=== PATIENT | female | born 1970 | race Caucasian/White ===

== ENCOUNTER 2019-08-26 11:08 | Day surgery (SDC) ==
[2019-08-21 15:24] LABS: HEMATOCRIT 41.6 % (37.0-47.0); HEMOGLOBIN 13.9 g/dL (12.0-16.0); MCH 28.8 PG (27-31); MCHC 33.4 g/dL (33-37); MCV 86.1 FL (81-99); MPV 10.5 FL (7.4-10.4); RBC 4.83 XMIL (4.2-5.4); RDW 13.7 % (11.5-14.5); WBC 5.97 X1000 (4.8-10.8)
[2019-08-21 15:46] LABS: CALCIUM 9.9 mg/dL (8.8-10.2); CREATININE 1.4 mg/dL (0.5-0.9); POTASSIUM 4.5 mmol/L (3.5-5.1)
[~2019-08-26 11:08] MED LIST: DIPRIVAN 1% ONE; FENTANYL ONE; QUELICIN (DOSE) ONE; ROBINUL ONE; VERSED ONE; XYLOCAINE-MPF 2% ONE
[2019-08-26] MEDS ORDERED: PEPCID ONE (11:34)
[2019-08-26] MEDS ORDERED: REGLAN ONE (11:34)
[2019-08-26] MEDS ORDERED: KEFZOL 1 GM/D5W 1 GM/50 ML IVPB ONE ×2 (11:34→11:35)
[2019-08-26] MEDS ORDERED: LR 1,000 ML ONE ×2 (11:34→16:24)
[2019-08-26] MEDS ORDERED: ZOFRAN ONE (12:50)
[2019-08-26] MEDS ORDERED: DECADRON ONE (12:50)
--- NOTE | 2019-08-26 16:59 | Diag Imaging Result Doc PS360 ---
FLUROSCOPY CYSTO - 08/26/2019 INDICATION: STENT PLACEMENT LT SIDE TECHNIQUE: The exam was performed by the patient's urologist. Two images were submitted. COMPARISON: None FINDINGS: There is a left percutaneous nephrostomy tube. There is a nephroureteral stent in presumably good position. IMPRESSION: No complication. Electronically signed by Lee Santos 08/26/2019 4:57 PM
--- NOTE | 2019-08-26 17:00 | Diag Imaging Result Doc PS360 ---
CHEST-PORTABLE - 08/26/2019 INDICATION: post op COMPARISON: 06/10/2015 FINDINGS: Lung volumes are severely low. There is some dense atelectasis or curvilinear infiltrate in the left lung base. The right lung is clear. Heart size and pulmonary vascularity is top normal. IMPRESSION: Low lung volumes. Small infiltrate versus dense atelectasis in the left lung base. Electronically signed by Lee Santos 08/26/2019 4:58 PM
[2019-08-26] MEDS ORDERED: NORCO-7.5 ONE (17:15)
[2019-08-26] MEDS ORDERED: MORPHINE IV PRN (17:25)
[2019-08-26] MEDS ORDERED: LABETALOL IV PRN (17:30)
[2019-08-26] MEDS ORDERED: ZOFRAN IV PRN (17:30)
[2019-08-26] MEDS ORDERED: LR 1,000 ML IV SCH (19:00)
[2019-08-26] MEDS: COLACE PO SCH (23:52)
[2019-08-26] MEDS: PERIDEX MT SCH (23:52)
[2019-08-26] MEDS: NORCO-7.5 PO PRN (23:53)
[2019-08-26] MEDS: KEFZOL 1 GM/D5W 1 GM/50 ML IVPB IV SCH (23:54)
[2019-08-27] MEDS: KEFZOL 1 GM/D5W 1 GM/50 ML IVPB IV SCH (05:50)
[2019-08-27 07:07] LABS: HEMATOCRIT 37.6 % (37.0-47.0); HEMOGLOBIN 12.1 g/dL (12.0-16.0); MCH 28.9 PG (27-31); MCHC 32.2 g/dL (33-37); RBC 4.18 XMIL (4.2-5.4); RDW 13.6 % (11.5-14.5); WBC 8.11 X1000 (4.8-10.8)
[2019-08-27 07:29] LABS: CALCIUM 8.3 mg/dL (8.8-10.2)
[2019-08-27 07:37] VITALS: BP 138/81
--- NOTE | 2019-08-27 07:50 | OPERATIVE NOTE ---
PROCEDURE DATE: 08/26/2019 PREOPERATIVE DIAGNOSIS: Bilateral renal stones. POSTOPERATIVE DIAGNOSIS: Bilateral renal stones. PROCEDURE PERFORMED: 1. Cystoscopy with externalized left ureteral stent. 2. Left percutaneous renal access. 3. Left percutaneous nephrostolithotomy for stones greater than 2 cm. 4. Left nephrostomy tube placement. 5. Left nephrostogram. 6. Cystoscopy and left ureteral stent placement. SURGEON: Edward Sheppard MD. GOVERNMENT PROPERTY INSPECTOR: None. COMPLICATIONS: None. BLOOD LOSS: 20 mL. DRAINS: 1. A 10-[place] nephrostomy tube. 2. A 6 x 24 cm left ureteral stent. 3. A 16-[place] Maki catheter. BLOOD LOSS: 20 mL. SPECIMENS REMOVED: Left renal stones. ANESTHESIA: General Endotracheal. INDICATIONS FOR PROCEDURE: Mrs. Ryder is a 48-year-old who presented to Urology Clinic after CT scans obtained for flank pain by her primary care physician. On the CT scan, patient had evidence of multiple bilateral renal stones with evidence of hydronephrosis. The patient had a large stone burden in both kidneys with greater than 2 cm stones present within each of the collecting systems with associated hydronephrosis. In talking with the patient, I recommended that due the size of the stones to undergo percutaneous nephrostolithotomy. Risks, benefits, and alternatives of procedure were discussed with the patient. The patient elected to proceed. DESCRIPTION OF PROCEDURE: After informed consent was obtained, the patient was brought to the operating room and placed on the operating stretcher in dorsal lithotomy position. Underwent endotracheal intubation. Received preoperative antibiotics. The patient was then positioned into a dorsal lithotomy position, was prepped and draped in usual sterile fashion. A preoperative time-out was performed with all parties in agreement, including anesthesia, surgical, nursing staff, at which point I inserted a 21-[place] cystourethroscope through the urethra and into the bladder. The patient had a normal bladder with no evidence of any diverticulum or cellules. No papillary lesions or bladder stones. Both ureteral orifices were visualized with effluxing clear yellow urine. Attention was then placed to the left ureteral orifice and an open-end catheter was able to be advanced up into the proximal ureter with ease. This was left in place and the cystourethroscope was removed and a 16-[place] Maki catheter inserted through the urethra into the bladder inflated with 10 mL sterile water and placed to gravity drainage. The silk tie was then used to tie the open-ended catheter and the urethral catheter to one another. Once this was completed, the patient was then placed into a prone position. All pressure points were padded. The patient was placed into a modified superman position. The patient's nipples were externalized to ensure that no pressure was present on the areola. At which point, the patient was then prepped and draped over the left flank. Gate Agent fluoroscopy was then obtained which showed ureteral access with calcifications in the mid renal pelvis and several calcifications were seen within the collecting system. Using fluoroscopy in the 0 and 25 degree positions, a calyx was determined and then using an access needle, this was passed into the collecting system and the stone was felt at that time. At which point, I passed a ZIPwire through the needle. It was seen to coil in the lower pole of the kidney. This was left in place and needle was removed and then serial dilations were performed starting at 6-[place] and increasing up to 12-[place]. At which point, a introducer was then used to pass a Sensor wire into the kidney and both wires were seen to coil within the lower pole. These were left in place and using a NephroMax balloon, the nephrostomy tube access was then obtained increasing up to 13 atmospheres and the ureteral sheath was advanced into the collecting system. The balloon was then deflated and removed, and a rigid nephroscope advance. Once into the kidney, stone was visualized. A small stone was seen in the lower pole which was grasped and completely removed. Larger stone was seen in the mid pole of the kidney. Using our Blanchard lithotripter, the stone was then fragmented into multiple pieces and these were each extracted. Once the stone was completely removed, attention was then placed to evaluating for residual stone fragments. The renal calyx was then evaluated with both a rigid and then a flexible nephroscope. No large stone fragments were seen within the upper pole. Within the interpolar area there were also stone fragments that were removed using rigid nephroscope and rigid graspers and Perc-NCircle device. Lower pole stones were also removed and using the flexible nephroscope, a zero tipped Nitinol basket was then used to grasp several stones within the lower pole region. Once each of the calyx was evaluated, a retrograde nephrostogram was shot through the cystoscope and each calyx was then re-evaluated. No residual large fragments. Gate Agent fluoroscopy showed no obvious filling defects seen within the kidney itself. Once this was completed, the nephroscope and the ureteral access sheath was completely removed. Good hemostasis was seen. No active bleeding was seen from our access site. Using a ZIPwire, a 10-[place] nephrostomy tube was then inserted. It was seen to coil within the upper pole. Nephrostogram was then performed which showed collecting system intact and good drainage down the ureter. This was then sutured in using a 2-0 silk at the skin and placed to gravity drainage. The patient was then repositioned into the dorsal lithotomy for repeat cystoscopy. A wire was passed through cystourethroscope and into the left ureteral orifice. A 6 x 24 cm left ureteral stent was then advanced up into the kidney with good coil within the collecting system endoscopically visualizing the bladder. Good drainage was seen through and around the stent. The patient's bladder was left full and a 16-[place] Maki catheter was then reinserted and inflated with 10 mL sterile water and placed to gravity drainage. The patient was then awoken and was taken to recovery in stable condition. DISPOSITION: The patient will be monitored overnight in the hospital. We will have her Maki catheter removed in the morning. Hopefully discharge later tomorrow. cc: Edward Sheppard MD MTDTheodore
[2019-08-27] MEDS: PERIDEX MT SCH (09:51)
[2019-08-27] MEDS: COLACE PO SCH (09:52)
[2019-08-27] MEDS: NORCO-7.5 PO PRN (10:50)
--- NOTE | 2019-08-27 11:22 | PROGRESS NOTE ---
DATE: 08/27/2019 SUBJECTIVE: Postoperative day 1 from Cystoscopy, left externalized stent, left percutaneous nephrosolithotomy for stones >2 cm, left nephrostomy tube placement, and left ureteral stent placement. She had minimal pain overnight. Nephrostomy tube drained over 2 L recorded. The Maki catheter was removed this morning. Prior to that, the patient had 1600 mL draining. She is tolerating p.o. intake. Denies any nausea or vomiting, and overall feels good. OBJECTIVE: Vital signs: Temperature 98.5 degrees, heart rate 79, blood pressure 138/81, oxygen saturation 99% on room air. General: No acute distress, resting comfortably in bed. Alert and oriented x3. Respiratory: Good respiratory effort without audible wheeze. Abdomen: Soft, nontender, nondistended. : No suprapubic tenderness. No CVA tenderness. The nephrostomy tube in place draining light pink to clear urine. No evidence of any clots. The nephrostomy tube site is well healed without erythema. No drainage around catheter itself. Skin: No skin lesions or rashes. DIAGNOSTIC DATA: White blood cell count 8.1, hemoglobin 12.1, hematocrit 37.6, platelets 192,000. Sodium 141, potassium 4, chloride 106, bicarb 25, BUN 8, creatinine 1.0, glucose 96, calcium 8.3. ASSESSMENT AND PLAN: Ms. Ryder is a 48-year-old who presents following left percutaneous nephrostolithotomy yesterday. The patient has been doing well. The patient had EBL of 20 mL. Maki catheter was removed this morning. Awaiting her to urinated this morning. The patient's nephrostomy tube is draining over 2 L of urinary output. Overall, she is having minimal complaints. Continue perioperative antibiotics. Encouraged her to remain hydrated at home. Continue with home medications. We will give her a prescription for antibiotics, pain med, and Colace. Encouraged to be ambulatory in the postoperative setting. We plan to preform procedure on the right side in next 1 to 2 weeks. Discussed this with her and her mother today. We will call her to schedule a time for this procedure. cc: MD PIEDAD Chen
== END 2019-08-27 10:54 | disposition home or self-care (01) ==
LOC: 4N 11:08 → OR 11:08
PROVIDERS: ATTEND Urology